=== PATIENT | female | born 1995 | race Caucasian/White ===

== ENCOUNTER 2017-08-17 05:04 | Emergency (ER) | payer BC ==
[~2017-08-17] VITALS: Ht 160 cm; Wt 55.0 kg
[~2017-08-17 05:04] MED LIST: MACR100C PO; PRENTAB72 PO
[2017-08-17 05:07] VITALS: BP 140/86; PULSE 122; RESP 19; TEMP 98.6; O2SAT 100
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
== END 2017-08-17 05:38 | disposition left against medical advice (07) ==
LOC: NEPF 05:04
DX: T76.21XA Adult sexual abuse, suspected, initial encounter (principal); Z72.0 Tobacco use
CPT/HCPCS: 99284